=== PATIENT | male | born 1990 | race Caucasian/White ===

== ENCOUNTER 2018-07-21 09:38 | Emergency (ER) | payer OTHER ==
[2018-07-21 09:52] VITALS: O2SAT 100; BMI 28.3
[2018-07-21] MEDS ORDERED: Tetracaine 0.5% Ophth 2 ML BOTTLE OS STA (11:19)
[2018-07-21] MEDS ORDERED: Fluorescein 1 mg Ophthalmic Strip OS STA (11:20)
[2018-07-21] MEDS ORDERED: Tdap Vaccine 0.5 ml Vial (10-64 yrs) IM ONE ×2 (11:30→11:53)
--- NOTE | 2018-07-21 11:34 | ED PDOC ---
HPI: Eye Injury/Pain Time Seen by Provider: 07/21/18 10:13 Chief Complaint (Nursing): Eye Problem Chief Complaint (Provider): left eye pain History Per: Patient History/Exam Limitations: no limitations Additional Complaint(s): 27 y/o M with no significant PMH who presents with Left eye discomfort since yesterday. 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 He was cutting copper tubing and suddenly felt something get into his eye. He was wearing safety glasses at the time. He states that he could not sleep last night due to eye discomfort. Has had increased tearing on the left and feels that there is something in his eye but has been unable to find anything. He has not taken anything for pain. Past Medical History Reviewed: Historical Data, Nursing Documentation, Vital Signs Vital Signs: Last Vital Signs Temp 98 F 07/21/18 09:51 Pulse 50 L 07/21/18 09:51 Resp 18 07/21/18 09:51 BP 135/86 07/21/18 09:51 Pulse Ox 100 07/21/18 09:51 - Medical History PMH: No Chronic Diseases - Family History Family History: States: Unknown Family Hx - Allergies Allergies/Adverse Reactions: Allergies Allergy/AdvReac Type Severity Reaction Status Date / Time No Known Allergies Allergy Verified 07/21/18 10:13 Review of Systems Eyes: Positive for: Pain Physical Exam - Reviewed Nursing Documentation Reviewed: Yes Vital Signs Reviewed: Yes - Physical Exam Appears: Positive for: Non-toxic Eye Exam: Positive for: Conjunctival injection (on left), Other (Left eyelid inverted and black speck noted inside upper eyelid. Visual acuity exam: Left: 20/20; Right: 20/20. Eye stained with tetracain and fluorescein and no corneal abrasion or ulceration appreciated. ) Neurological/Psych: Positive for: Awake, Alert, Oriented - ECG O2 Sat by Pulse Oximetry: 100 Medical Decision Making Medical Decision Making: Foreign body removed with cotton swab. Pt had immediate relief after removal of foreign body. Dr. Pepper contacted. Patient to follow up immediately after discharge from ED for further evaluation. Disposition - Clinical Impression Clinical Impression: Foreign body in eye - Patient ED Disposition Is Patient to be Admitted: No Discussed With : Troy Pepper Doctor Will See Patient In The: Office - Disposition Referrals: Gurland,Troy, MD [Staff Provider] - Disposition: Routine/Home Disposition Time: 12:00 Condition: STABLE Additional Instructions: Follow up with Dr. Pepper (assistant professor of geography) immediately after discharge. Take Ibuprofen or Tylenol for pain. Return if you have worsening eye pain. Instructions: Foreign Body in Eye (DC) Forms: [facility] [facility] (Italian), [facility] ED School/Work Excuse Print Language: KHMER
[2018-07-21 12:08] VITALS: BP 126/68; PULSE 72; RESP 16; TEMP 98.3
== END 2018-07-21 12:05 | disposition home or self-care (01) ==
LOC: H.ER 09:38
DX: T15.01XA Foreign body in cornea, right eye, initial encounter (principal); Y99.0 Civilian activity done for income or pay